=== PATIENT | male | born 2005 ===

== ENCOUNTER 2023-07-28 05:57 | Outpatient (CLI) | payer BC ==
[2023-07-28] VITALS (22 sets, daily range): BP systolic 113–215; BP diastolic 36–151; PULSE 70–106
== END 2023-07-28 23:59 | disposition home or self-care (01) ==
LOC: CARD DIAG 05:57
PROVIDERS: ATTEND Student in an Organized Health Care Education/Training Program
DX: R42 Dizziness and giddiness (principal)
CPT/HCPCS: 93660